=== PATIENT | male | born 1955 | race Caucasian/White ===

== ENCOUNTER → 2017-07-23 10:33 | Outpatient (CLI) | payer OTHER, SELFPAY ==
--- NOTE | 2017-07-23 10:34 | RAD_ITS ---
STUDY: X-RAY - PELVIS AND RIGHT HIP REASON FOR EXAM: Postoperative follow-up. TECHNIQUE: Radiological exam, hip, unilateral, with pelvis when performed; 2 or 3 views. COMPARISON: Radiographs 06/22/2017. FINDINGS: There is a small ossification adjacent to the right iliac crest. There is a bone island in the left superior pubic ramus. Normal pubic symphysis. Normal bilateral ischial tuberosities. There is a hip nail in the proximal right femur with intramedullary piedad bridging a comminuted intertrochanteric fracture with no interval change of the fracture fragments. There is early callus formation adjacent to the lesser trochanteric fragment and heterotopic ossification adjacent to the greater trochanter. There is vascular calcification in the right thigh. RAD/Hip 2-3 Views with Pelvis IMPRESSION: Healing intertrochanteric fracture with internal fixation. Electronically Signed: Arturo Reza MD at 9:42 EST Tel , Service support ,
== END ==
PROVIDERS: Visit Provider Orthopaedic Surgery
DX: M25.551 Pain in right hip (principal)
CPT/HCPCS: 73502

== ENCOUNTER → 2017-09-03 10:12 | Outpatient (CLI) | payer OTHER, SELFPAY ==
--- NOTE | 2017-09-03 10:15 | RAD_ITS ---
STUDY: X-RAY - PELVIS AND RIGHT HIP REASON FOR EXAM: Male, 62 years old. POST OP FOLLOW UP TECHNIQUE: Radiological exam, hip, unilateral, with pelvis when performed; 2 or 3 views. COMPARISON: None. FINDINGS: There is a non-specific bowel gas pattern. Normal visualized soft tissue structures. There is diffuse demineralization of the osseous structures. There is narrowing with cortical sclerosis and osteophyte formation of the sacroiliac joint consistent with degenerative osteoarthritic changes. There is an osteoblastic lesion in the left superior pubic ramus measures 1.5 cm most likely represent a benign bone island Normal pubic symphysis. Normal bilateral ischial tuberosities. There is a healing intertrochanteric fracture of the right femoral neck. There is a large heterotopic ossification of the medial aspect of the hip joint. The hardware is seen in good position. RAD/Hip 2-3 Views with Pelvis IMPRESSION: Healing intertrochanteric fracture of the right femoral neck. Electronically Signed: Jay Cavanaugh MD at 9:38 EDT Tel , Service support ,
== END ==
PROVIDERS: Visit Provider Orthopaedic Surgery
DX: S72.141A Displaced intertrochanteric fracture of right femur, initial encounter for closed fracture (principal)
CPT/HCPCS: 73502

== ENCOUNTER → 2017-09-17 17:02 | Outpatient (CLI) | payer OTHER, SELFPAY ==
--- NOTE | 2017-09-17 17:12 | CT_ITS ---
STUDY: CT RIGHT HIP WITHOUT CONTRAST REASON FOR EXAM: Male, 62 years old. Status post fall June 2017. Right hip fracture with repair. Question of nonhealing. RADIATION DOSAGE (If Supplied By Facility): CTDIvol = ( 30.59 ) mGy, DLP = ( 1617.68 ) mGycm TECHNIQUE: Transaxial imaging of the right hip was performed without oral contrast, and without intravenous administration of contrast material. Coronal and sagittal images of the hip were constructed. The entire femoral shaft is also included on the images. Individualized dose optimization techniques were used for this CT. COMPARISON: X-rays of the right hip 09/03/2017, 07/23/2017, and 06/22/2017. FINDINGS: The patient has undergone previous ORIF of a comminuted right intertrochanteric fracture with placement of a long intramedullary fixation piedad, distal traversing screw, and proximal sliding screw. Major fracture components are in adequate alignment and there is no significant bone resorption around hardware to suggest loosening. There is an obliquely vertical lucent fracture defect extending through the intertrochanteric region of the femur. There are areas of continuous bone growth across the anterior inferior and anterior superior margins of this fracture site, best seen on coronal images 57-63 and on axial images 43-47 and 56-58. There is no visualized continuous bone growth across the mid or posterior portions of the fracture site. Areas of bridging bone growth are seen between the large bone fragments comprising the lesser trochanter and the posterior margin of the base of the femoral neck (axial images 44-48 and the posterior margin of the proximal femoral shaft (axial images 72-74).. There is mild degenerative arthrosis of the right hip. There is no demonstrated fracture or destructive lesion involving the right acetabulum or visualized bones of the right hemipelvis.. Incidental note is made of a small knee joint effusion. CT/Extremity Lower without Contra IMPRESSION: Comminuted right intertrochanteric fracture is in adequate alignment and fixation hardware appears to be intact. Relatively small areas of bridging bone growth are seen along the anterior margin of the fracture site, with no definite bone growth across remainder of fracture. Partial healing of the lesser trochanteric fracture, which also creates a small area of continuous bridging from the base of the femoral neck to the posterior margin of the proximal femoral shaft. Mild degenerative arthrosis of the hip. Electronically Signed: Chao Elliott MD at 4:00 EDT , Service support ,
== END ==
PROVIDERS: Visit Provider Orthopaedic Surgery
DX: S72.141G Displaced intertrochanteric fracture of right femur, subsequent encounter for closed fracture with delayed healing (principal); M25.461 Effusion, right knee; Z91.81 History of falling
CPT/HCPCS: 73700